=== PATIENT | female | born 1985 | race American Indian/Alaskan Native ===

== ENCOUNTER 2018-01-18 12:32 | Emergency (ER) | payer BC, OTHER ==
--- NOTE | 2018-01-18 13:44 | EDM.PDOC ---
ED HPI GENERAL MEDICAL PROBLEM - General Chief Complaint: Lower Extremity Injury/Pain Stated Complaint: RT KNEE, PAIN Time Seen by Provider: 01/18/18 12:49 Source of Information: Reports: Patient, RN, RN Notes Reviewed - History of Present Illness INITIAL COMMENTS - FREE TEXT/NARRATIVE: Pt to ER with c/o Left leg pain. She states she tripped over someone on a plane a few days ago. This is when she began feeling the pain. Pt states the pain is down the back of the leg above and below the knee. Pt states she can ambulate and bear weight on it. Pt rates pain a 4-5/10. Onset: Sudden Onset Date: 01/16/18 Duration: Getting Worse Location: Reports: Lower Extremity, Left Quality: Reports: Ache Severity: Moderate Improves with: Reports: None Worsens with: Reports: None Associated Symptoms: Reports: No Other Symptoms Right Knee Pain Score (Numeric/FACES): 8 - Related Data Allergies Allergy/AdvReac Type Severity Reaction Status Date / Time No Known Allergies Allergy Verified 01/18/18 12:36 Past Medical History HEENT History: Reports: Impaired Vision Cardiovascular History: Reports: None Respiratory History: Reports: None Gastrointestinal History: Reports: Cholelithiasis Genitourinary History: Reports: None 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: Musculoskeletal History: Reports: None Neurological History: Reports: None Psychiatric History: Reports: None Endocrine/Metabolic History: Reports: None Hematologic History: Reports: None Immunologic History: Reports: None Oncologic (Cancer) History: Reports: None Dermatologic History: Reports: None - Past Surgical History GI Surgical History: Reports: Cholecystectomy Social & Family History - Family History Family Medical History: Noncontributory - Tobacco Use Smoking Status *Q: Light Tobacco Smoker Years of Tobacco use: 10 Packs/Tins Daily: 0 - Caffeine Use Caffeine Use: Reports: Coffee Caffeine Use Comment: drinks coffee all day - Alcohol Use Days Per Week of Alcohol Use: 0 - Recreational Drug Use Recreational Drug Use: No Review of Systems - Review of Systems Review Of Systems: ROS reveals no pertinent complaints other than HPI. ED EXAM, GENERAL - Physical Exam Exam: See Below Exam Limited By: No Limitations General Appearance: Alert, WD/WN, No Apparent Distress Eye Exam: Bilateral Eye: Normal Inspection Ears: Normal External Exam, Normal Canal, Hearing Grossly Normal, Normal TMs Nose: Normal Inspection, Normal Mucosa, No Blood Throat/Mouth: Normal Inspection, Normal Lips, Normal Teeth, Normal Gums, Normal Oropharynx, Normal Voice, No Airway Compromise Head: Atraumatic, Normocephalic Neck: Normal Inspection, Supple, Non-Tender, Full Range of Motion Respiratory/Chest: No Respiratory Distress, Lungs Clear, Normal Breath Sounds, No Accessory Muscle Use, Chest Non-Tender Cardiovascular: Normal Peripheral Pulses, Regular Rate, Rhythm, No Edema, No Gallop, No JVD, No Murmur, No Rub GI/Abdominal: Normal Bowel Sounds, Soft, Non-Tender, No Organomegaly, No Distention, No Abnormal Bruit, No Mass (Female) Exam: Deferred Rectal (Female) Exam: Deferred Back Exam: Normal Inspection, Full Range of Motion, NT Extremities: Other (left knee swelling) Neurological: Alert, Oriented, CN II-XII Intact, Normal Cognition, Normal Gait, Normal Reflexes, No Motor/Sensory Deficits Psychiatric: Normal Affect Skin Exam: Warm, Dry, Intact, Normal Color, No Rash Lymphatic: No Adenopathy Course - Vital Signs Last Recorded V/S: Last Vital Signs Temp 98.1 F 01/18/18 12:37 Pulse 75 01/18/18 13:54 Resp 18 01/18/18 13:54 BP 121/66 01/18/18 13:54 Pulse Ox 96 01/18/18 13:54 - Radiology Interpretation Free Text/Narrative:: Right knee xray: No acute findings See rad report Departure - Departure Time of Disposition: 13:52 Disposition: Home, Self-Care 01 Condition: Fair Clinical Impression: Contusion of knee Sprain of knee and leg Qualifiers: Encounter type: initial encounter Laterality: right Qualified Code(s): S83.91XA - Sprain of unspecified site of right knee, initial encounter - Discharge Information Instructions: Knee Sprain, Adult, [id number], Knee Immobilizer, [id number] Referrals: PCP,None [Primary Care Provider] - Forms: ED Department Discharge Additional Instructions: Elevate and ice the area as tolerated May wear immobilizer for comfort and protection as tolerated Tylenol or ibuprofen as directed for pain Follow up with your primary care facility if no improvement
[2018-01-18 13:55] VITALS: BP 121/66
== END 2018-01-18 13:53 | disposition home or self-care (01) ==
LOC: DL.ED 12:32
DX: S83.91XA Sprain of unspecified site of right knee, initial encounter (principal); S80.01XA Contusion of right knee, initial encounter; F17.210 Nicotine dependence, cigarettes, uncomplicated; W18.41XA Slipping, tripping and stumbling without falling due to stepping on object, initial encounter
CPT/HCPCS: 73562-RT; 99284

== ENCOUNTER 2018-12-28 11:49 | Emergency (ER) | payer OTHER ==
[~2018-12-28 11:49] MED LIST: Sodium Chloride 0.9% 100 ML IV ONE; fentaNYL 100 MCG/2 ML SDV IVPUSH ONE
[2018-12-28] MEDS ORDERED: Tranexamic Acid 1,000 MG in Sodium Chloride 0.9% 100 ML IV ONE (11:50)
[2018-12-28] MEDS ORDERED: fentaNYL 100 MCG/2 ML SDV IV ONE (11:50)
[2018-12-28] MEDS ORDERED: ceFAZolin 2 GM in Sodium Chloride 0.9% 100 ML IV ONE (11:50)
[2018-12-28] MEDS ORDERED: Ondansetron 4 MG/2 ML SDV IV ONE (11:50)
[2018-12-29 12:05] LABS: ANION GAP 12.9; CHLORIDE,CL 106 mmol/L (101-111); SODIUM,NA 135 mmol/L (135-145)
--- NOTE | 2018-12-30 09:20 | CONS ---
SERVICE DATE: 12/29/2018 REASON FOR CONSULTATION: Hemorrhage due to miscarriage. HISTORY OF PRESENT ILLNESS: A 33-year-old female presented to the Emergency Department with spotting ongoing for the past 3 days, and then tonight around 11:00, started having severe cramping and heavier vaginal bleeding with passage of large clots as well as some dizziness. Uncertain if she has passed any tissue. Reports estimated due date as 07/26/2019. This was by [facility] ultrasound. The patient reports that she did feel a heartbeat at that time. The patient also had an ultrasound performed on 12/25/2018, because she has presented to the clinic with vaginal spotting and bleeding. At that time, there was an empty gestational sac. No pole. shampoo technician reported seeing what looked falsely like 2 separate sacs, and what was thought to be heartbeat was actually maternal blood flow, and overall findings were consistent with blighted ovum or most likely early miscarriage. The patient is a 4, para 2-1-0-3; blood type is O positive; and she is denying other acute concerns or complaints at this time. PAST MEDICAL HISTORY: Obesity and history of delivery. PAST SURGICAL HISTORY: Laparoscopic cholecystectomy in 2011. REVIEW OF SYSTEMS: Nausea without vomiting. No fever or chills. No chest pain or shortness of breath. No diarrhea or constipation. The patient denies other acute symptoms. PHYSICAL EXAMINATION: Vital Signs: Temperature is 98.0, pulse 74, respiratory rate of 18, O2 saturations 97% on room air, and blood pressure 128/65. General: The patient appears somewhat pale. HEENT: Grossly unremarkable. Heart: Regular without murmur. Lungs: Clear to auscultation bilaterally. Abdomen: Soft and nontender. Positive bowel sounds throughout. Genitourinary: Heavy vaginal bleeding present. On speculum exam, I removed approximately 200 mL and blood clots and flowing blood. Cervix was then prepped with Betadine, and I used a blunt curette as well as ring forceps to remove a small 0.5 x 1 cm fragment of placental tissue and additional clot. Extremities: No edema, erythema, or tenderness noted. Neurological: She is alert. IMAGING: Ultrasound performed in the Emergency Department after curetting of the uterus, and essentially, uterus is empty other than some blood. No remaining products of conception were seen. LABORATORY DATA: Blood type is O positive. Hemoglobin 14.5, platelets 255, and white blood cell count 9.88. Complete metabolic profile remarkable only for a CO2 of 20, calcium of 8.6, and glucose of 120. Otherwise, all within normal limits. ASSESSMENT: 1. Incomplete miscarriage. 2. Status post Emergency Department curetting of the uterus for removal of remaining products of conception, verified and completed by ultrasound. 3. Blood type O positive. 4. Now 4, para 2-1-1-3. PLAN: At this time, the patient is going to be given a dose of fentanyl for additional pain management, TXA to help control any additional hemorrhage, and 2 g of Ancef due to instrumentation of the uterus in less than ideal conditions and anticipate that I will just recheck her to verify that her bleeding has been controlled, and then she can be discharged home with close followup. She should see her obstetrical provider sometime this week for verification that things have been going well. I have spoken with the patient and her father to monitor for signs and symptoms of infection including fever, chills, uterine tenderness, foul-smelling drainage, discharge, also to monitor for more significant or heavy bleeding which may require further intervention. The patient will be also provided with a prescription for hydrocodone 5/325 one to two tablets every 6 hours as needed for more significant pain. Otherwise, advised to take over-the- counter Motrin 800 mg every 8 hours as needed for pain and advised that Motrin was typically more effective for uterine cramping than narcotics. The patient verbalizes understanding, and her questions were answered. [facility] /[id number]
== END 2018-12-29 03:30 | disposition home or self-care (01) ==
LOC: DL.ED 11:49
DX: O03.9 Complete or unspecified spontaneous abortion without complication (principal)
CPT/HCPCS: 36415; 76817; 80053; 85025; 86850; 86900; 86901; 86920; 86922; 96361; 96365; 96375; 96376; 99284-25; J0690; J2405; J3010; J7050

== ENCOUNTER 2019-12-05 08:04 | Inpatient (IN) | payer MEDICAID ==
[~2019-12-05 08:04] MED LIST changes: +Carboprost Tromethamine 250 MCG/1 ML Amp IM PRN; +Lactated Ringers 1,000 ML IV ONE; +Lidocaine 1% 30 ML SDV INJECT PRN; +Methylergonovine 0.2 MG/1 ML Amp IM PRN; +Misoprostol 400 MCG (4 X 100 MCG TAB) RECTAL PRN; +Ondansetron 4 MG/2 ML SDV IVPUSH PRN; +Sodium Chloride 0.9% 10 ML Syringe FLUSH PRN; -Sodium Chloride 0.9% 100 ML IV ONE; +Tranexamic Acid 1,000 MG in Sodium Chloride 0.9% 100 ML IV PRN; -fentaNYL 100 MCG/2 ML SDV IVPUSH ONE
[2019-12-05] MEDS ORDERED: Oxytocin/Normal Saline 30 UNIT/500 ML BAG IV SCH (09:00)
[2019-12-05] MEDS: Lactated Ringers 1,000 ML IV SCH ×3 (10:10→16:20)
[2019-12-05] MEDS ORDERED: fentaNYL 100 MCG/2 ML SDV IVPUSH PRN (12:30)
[2019-12-05] MEDS ORDERED: fentaNYL 100 MCG/2 ML SDV ONE (15:37)
[2019-12-05] MEDS ORDERED: EPINEPHrine 1 MG/1 ML Amp ONE (15:37)
[2019-12-05] MEDS ORDERED: Sodium Bicarbonate 4.2% 2.5 MEQ/5 ML SDV ONE (15:37)
--- NOTE | 2019-12-05 16:04 | PCM.SN ---
- Free Text/Narrative Note: Intrathecal. sitting position, sterile prep and drape. 1% lidocaine w bicarb for skiinwheal to L2-L3 interspace. Introducer, 24ga Pencan x 1. Pos CSF,neg heme, neg parasthesia. 0.1 ml pf 1:1000 epi, pf NS 0.4ml, 15 mcg pf sufenta, 35 mcg pf fentanyl, and 6 mg of 0.75% pf bupivacaine injected after CSF aspiration. Pt to L lateral position. Procedure time 1535 to 1605
[2019-12-05] MEDS ORDERED: Promethazine 25 MG/ML SDV ONE (17:51)
[2019-12-05] MEDS ORDERED: Simethicone 80 MG Tab.Chew PO PRN (17:57)
[2019-12-05] MEDS ORDERED: Zolpidem 5 MG Tab PO PRN (17:57)
[2019-12-05] MEDS ORDERED: Benzocaine/Menthol 20%-0.5% Spray 56 GM Canister TOP PRN (17:57)
--- NOTE | 2019-12-05 18:38 | PCM.LDHP ---
L&D History of Present Illness - General Date of Service: 12/05/19 (admit H&P) Admit Problem/Dx: Patient Status Order with Admit Dx/Problem 12/05/19 08:00 Patient Status [ADT] Routine Admission Diagnosis/Problem Admission Diagnosis/Problem Term 12/05/19 23:41 Laura is a delightful 33yo NA (2102) @ 39w1d who presents to L&D for induction due to excessive growth in the third trimester, and suspected LGA gestation, along with advanced cervical dilation. Source of Information: Patient, Family, Old Records, Provider, RN, RN Notes Reviewed History Limitations: Reports: No Limitations - History of Present Illness Introduction:: Laura is 33yo NA (2102) @ 39w1d in for induction for excessive growth in third trimester, suspected LGA, term , advanced cervical dilation, hx delivery, see episode and notes for details. baby active. no bleeding or LOF. 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: : 4 Para: 3 LMP (Approximate): Other OB/BYN History: Hx delivery Musculoskeletal History: Reports: None Neurological History: Reports: None Psychiatric History: Reports: None Endocrine/Metabolic History: Reports: None Hematologic History: Reports: None Immunologic History: Reports: None Oncologic (Cancer) History: Reports: None Dermatologic History: Reports: None - Past Surgical History GI Surgical History: Reports: Cholecystectomy Social & Family History - Family History Family Medical History: Noncontributory - Tobacco Use Smoking Status *Q: Former Smoker Used Tobacco, but Quit: Yes Month/Year Tobacco Last Used: 2018 Second Hand Smoke Exposure: No - Caffeine Use Caffeine Use: Reports: None, Coffee Caffeine Use Comment: drinks coffee all day - Recreational Drug Use Recreational Drug Use: No - Living Situation & Occupation Living situation: Reports: Single (lives with her 3 children. just moved back from .) H&P Review of Systems - Review of Systems: Review Of Systems: Comprehensive ROS is negative, except as noted in HPI. L&D Exam - Exam Exam: See Below - Vital Signs Vital Signs: Last Vital Signs Temp 98.4 F 12/05/19 10:00 Pulse 79 12/05/19 10:00 Resp 16 12/05/19 10:00 BP 111/69 12/05/19 10:00 Pulse Ox Weight: 573 lb 3.23 oz - OB Specific Contraction Duration (sec): 45-90 Contraction Frequency (min): irreg Contraction Intensity: Mild Movement: Active Heart Tones: Present Heart Rate (FHR) Variability: Moderate (6-25 bmp) Presentation: Vertex Estimated Weight: 9lb - Hatch Score Hatch Score Cervix Position: Posterior Hatch Score Consistency: Soft Hatch Score Effacement: 51-70% Hatch Score Dilation: 3-4 cm Hatch Score Infant's Station: -3 Hatch Score Total: 6 - Exam General: Alert, Oriented HEENT: Conjunctiva Clear, EOMI, Hearing Intact, Nares Patent, Pupils Equal, Pupils Reactive, PERRLA Neck: Supple, Trachea Midline Lungs: Clear to Auscultation, Normal Respiratory Effort Cardiovascular: Regular Rate, Regular Rhythm GI/Abdominal Exam: Normal Bowel Sounds, Soft, Non-Tender, No Organomegaly, No Abnormal Bruit, No Mass, Pelvis Stable Rectal Exam: Normal Exam Genitourinary: Normal external exam, Cervical dilitation, Cervical fluid (clear , copious), Enlarged uterus Back Exam: Normal Inspection, Full Range of Motion Extremities: Normal Inspection, Normal Range of Motion, Non-Tender, No Pedal Edema, Normal Capillary Refill Skin: Warm, Dry, Intact Neurological: Cranial Nerves Intact, Reflexes Equal Bilateral Psychiatric: Alert, Normal Affect, Normal Mood - Patient Data Lab Results Last 24 hrs: Laboratory Results - last 24 hr 12/05/19 Range/Units 09:55 WBC 6.3 (5.0-10.0) 10^3/uL RBC 3.90 L (4.2-5.4) 10^6/uL Hgb 11.3 L D (12.0-16.0) g/dL Hct 33.9 L (37.0-47.0) % MCV 86.9 D (80-100) fL MCH 29.0 (27.0-34.0) pg MCHC 33.3 (33.0-35.0) g/dL Plt Count 192 (150-450) 10^3/uL Result Diagrams: 12/05/19 09:55 Problem List Initiated/Reviewed/Updated: Yes Orders Last 24hrs: Active Orders 24 hr Category Date Time Status Patient Status [ADT] Routine ADT 12/05/19 08:00 Active Communication Order [RC] ASDIRECTED Care 12/04/19 22:05 Active Communication Order [RC] ASDIRECTED Care 12/04/19 22:18 Active Notify Provider Vital Signs OB [RC] ASDIRECTED Care 12/04/19 22:05 Active Notify Provider [RC] PRN Care 12/04/19 22:05 Active Notify Provider [RC] PRN Care 12/04/19 22:18 Active Notify Provider [RC] PRN Care 12/04/19 22:18 Active Notify Provider [RC] STAT Care 12/04/19 22:18 Active POC Labs [RC] ASDIRECTED Care 12/04/19 22:05 Active Peripheral IV Care [RC] 08,20 Care 12/04/19 22:23 Active Up ad Milagros [RC] ASDIRECTED Care 12/04/19 22:05 Active Vaginal Exam [RC] PRN Care 12/04/19 22:18 Active Vital Signs [RC] PER UNIT ROUTINE Care 12/04/19 22:05 Active Consult to Air Twist Operator [CONS] Routine Cons 12/05/19 18:10 Active Regular Diet [DIET] Diet 12/05/19 Dinner Active CBC W/O DIFF,HEMOGRAM [HEME] AM Lab 12/07/19 05:11 Ordered Acetaminophen [Tylenol] Med 12/04/19 22:05 Active 650 mg PO Q4H PRN Benzocaine/Menthol [Dermoplast Pain Relief [place]] Med 12/05/19 17:57 Active See Dose Instructions TOP Q4H PRN Carboprost Tromethamine [Hemabate DS] Med 12/04/19 22:05 Active 250 mcg IM ASDIRECTED PRN Docusate Sodium [Colace] Med 12/05/19 17:57 Ordered 100 mg PO BID PRN Ibuprofen [Motrin] Med 02/07/20 17:57 Active 800 mg PO Q8H PRN Lactated Ringers [Ringers, Lactated] 1,000 ml Med 12/04/19 22:15 Active IV ASDIRECTED Lidocaine 1% [Xylocaine-MPF 1%] Med 12/04/19 22:05 Active 30 ml INJECT ASDIRECTED PRN Methylergonovine [Methergine] Med 12/04/19 22:05 Active 0.2 mg IM ASDIRECTED PRN Ondansetron [Zofran] Med 12/04/19 22:05 Active 4 mg IVPUSH Q4H PRN Oxytocin/Normal Saline [Pitocin in NS 30 UNIT/500 ML] Med 12/05/19 09:00 Active 30 unit in 500 ml IV TITRATE Vit with Ca/FA/Iron [ Plus Iron] Med 12/06/19 09:00 Ordered 1 each PO DAILY Simethicone Med 12/05/19 17:57 Ordered 80 mg PO Q4H PRN Sodium Chloride 0.9% [Saline Flush] Med 12/04/19 22:05 Active 10 ml FLUSH ASDIRECTED PRN Tranexamic Acid [Cyklokapron] 1,000 mg Med 12/04/19 22:05 Active Sodium Chloride 0.9% [Normal Saline] 100 ml IV ONETIME Zolpidem [Ambien] Med 12/05/19 17:57 Active 5 mg PO BEDTIME PRN fentaNYL [Sublimaze] Med 12/05/19 12:30 Active 50 mcg IVPUSH Q1H PRN miSOPROStoL [Cytotec] Med 12/04/19 22:05 Active 800 mcg RECTAL ASDIRECTED PRN Assess Lochia [WOMSER] Per Unit Routine Oth 12/05/19 17:57 Ordered Assess Uterine Involution [WOMSER] Per Unit Routine Oth 12/05/19 17:57 Ordered Breast Pump [WOMSER] Per Unit Routine Oth 12/05/19 17:57 Ordered Ice Therapy [OM.PC] Per Unit Routine Oth 12/05/19 17:57 Ordered Perineal Care [OM.PC] Per Unit Routine Oth 12/05/19 17:57 Ordered Peripheral IV Insertion Adult [OM.PC] Urgent Oth 12/04/19 22:18 Ordered Saline Lock Insert [OM.PC] Routine Oth 12/04/19 22:05 Ordered Sitz Bath [OM.PC] Per Unit Routine Oth 12/05/19 17:57 Ordered Resuscitation Status Routine Resus Stat 12/04/19 22:05 Ordered Medication Orders Acetaminophen (Tylenol) 650 mg PO Q4H PRN PRN Reason: Pain (Mild 1-3) and fever Benzocaine/Menthol (Dermoplast Pain Relief [place]) 0 gm TOP Q4H PRN PRN Reason: Perineal comfort measures Carboprost Tromethamine (Hemabate Ds) 250 mcg IM ASDIRECTED PRN PRN Reason: HEMORRHAGE Docusate Sodium (Colace) 100 mg PO BID PRN PRN Reason: Constipation Fentanyl (Sublimaze) 50 mcg IVPUSH Q1H PRN PRN Reason: Pain (moderate 4-6) Lactated Ringer's (Ringers, Lactated) 1,000 mls @ 125 mls/hr IV ASDIRECTED CIRA Last Admin: 12/05/19 16:20 Dose: 125 mls/hr Infusion: 12/05/19 16:20 Dose: 125 mls/hr Admin: 12/05/19 15:50 Dose: 125 mls/hr Infusion: 12/05/19 15:50 Dose: 125 mls/hr Admin: 12/05/19 10:10 Dose: 125 mls/hr Oxytocin/Sodium Chloride (Pitocin In Ns 30 Unit/500 Ml) 30 unit in 500 mls @ 2 mls/hr IV TITRATE CIRA; Protocol Last Titration: 12/05/19 16:43 Dose: 10 munits/min, 10 mls/hr Titration: 12/05/19 16:18 Dose: 9 munits/min, 9 mls/hr Titration: 12/05/19 14:00 Dose: 8 munits/min, 8 mls/hr Titration: 12/05/19 11:55 Dose: 6 munits/min, 6 mls/hr Titration: 12/05/19 11:08 Dose: 4 munits/min, 4 mls/hr Admin: 12/05/19 10:31 Dose: 2 munits/min, 2 mls/hr Tranexamic Acid 1,000 mg/ (Sodium Chloride) 110 mls @ 660 mls/hr IV ONETIME PRN PRN Reason: Bleeding Ibuprofen (Motrin) 800 mg PO Q8H PRN PRN Reason: Mild Pain or Fever Lidocaine HCl (Xylocaine-Mpf 1%) 30 ml INJECT ASDIRECTED PRN PRN Reason: Perineal Repair Methylergonovine Maleate (Methergine) 0.2 mg IM ASDIRECTED PRN PRN Reason: Hemorrhage Misoprostol (Cytotec) 800 mcg RECTAL ASDIRECTED PRN PRN Reason: Hemorrhage Ondansetron HCl (Zofran) 4 mg IVPUSH Q4H PRN PRN Reason: Nausea/Vomiting Last Admin: 12/05/19 15:40 Dose: 4 mg Prenat Multivit/[place]/Iron/Folic Ac ( Plus Iron) 1 each PO DAILY CIRA Simethicone (Simethicone) 80 mg PO Q4H PRN PRN Reason: Gas Sodium Chloride (Saline Flush) 10 ml FLUSH ASDIRECTED PRN PRN Reason: Keep Vein Open Zolpidem Tartrate (Ambien) 5 mg PO BEDTIME PRN PRN Reason: Insomnia Assessment/Plan Comment:: Assessment: 33yo NA (261) @ 39w1d candidate for induction excessive growth during third trimester--likely LGA Hs PTD @ 34 weeks GBS negative Rubella immune Blood type O+ advanced cervical dilation -- anemia/mild NST reactive/reassuring Plan: admit as scheduled/planned for induction AROM carried out with return of copious amounts of clear fluid pitocin infusion per protocol continue to monitor closely. all questions answered. Laura happy with care and plan. b
--- NOTE | 2019-12-05 18:44 | PCM.DEL ---
L & D Note - General Info Date of Service: 12/05/19 (time of delivery 1735) Mother's Due Date: 12/11/19 (39w1d) - Delivery Note Labor: Induced by ARM, Induced by Oxytocin Delivery Outcome: Livebirth Delivery Method: Spontaneous Vaginal Delivery-Single Infant Delivery Mode: Spontaneous Nuchal Cord: None Prep: Povidone-Iodine (Betadine Anesthesia Type: Intrathecal Amniotic Fluid Description: Clear Episiotomy Type: None Laceration: None Placenta: Intact, Expressed Cord: 3 Vessels Estimated Blood Loss: 200 : Bulb Syringe Provider: Maddy Erickson Score 1 min: 8 Score 5 min: 9 Delivery Comments (Free Text/Narrative):: Laura presented as noted for induction. AROM carried out with return of large amount of clear fluid. Pitocin infusion started. She progressed on into labor. Used fentanyl, then subsequently had intrathecal placed witgh excellent results. Labored down to complete dilation, and was with contractions. viable female delivered in Sushil position with feet up on stirrups. some assistance given to delivering the shoulders. viable female infant with strong cry at . no nuchal cord. suctioned and dried with strong cry right away. APGARs 8 & 9 BW 9lb 8oz cord double clamped and cut by family member cord blood specimen obtained for lab. placenta delivered intact with trailing membranes, inspected and found to be complete. 3VC noted. fundus firm, EBL<200cc, pitocin infusiong per protocol. intact perineum mom and baby tolerated well and will follow routine nursery and orders and cares. hmb Induction Criteria - Hatch Score Hatch Score Dilation: 3-4 cm Hatch Score Effacement: 60-70% Hatch Score Infant's Station: -3 Hatch Score Consistency: Soft Hatch Score Cervix Position: Posterior Hatch Score Total: 6 Hatch Score Presenting Part: Reports: Cephalic - Induction Gestational Age >/= 39 wks: Yes Estimated Pelvis: Reports: Adequate Reassuring Monitoring Strip: Yes Absence of Tachy Systole: Yes - Augmentation Estimated Pelvis: Reports: Adequate Weight Estimated:: Reports: LGA Estimated Weight if LGA: 9 lb Reassuring Monitoring Strip: Yes Absence of Tachy Systole: Yes - General Info Date of Service: 12/05/19 - Review of Systems General: Reports: No Symptoms HEENT: Reports: No Symptoms Pulmonary: Reports: No Symptoms Cardiovascular: Reports: No Symptoms Gastrointestinal: Reports: No Symptoms Genitourinary: Reports: No Symptoms Musculoskeletal: Reports: No Symptoms Skin: Reports: No Symptoms Neurological: Reports: No Symptoms Psychiatric: Reports: No Symptoms - Patient Data Vitals - Most Recent: Last Vital Signs Temp 98.4 F 12/05/19 10:00 Pulse 79 12/05/19 10:00 Resp 16 12/05/19 10:00 BP 111/69 12/05/19 10:00 Pulse Ox Weight - Most Recent: 573 lb 3.23 oz I&O - Last 24 Hours: Intake & Output 12/05/19 12/05/19 12/05/19 06:59 14:59 22:59 Intake Total 1999 Balance 1999 Lab Results Last 24 Hours: Laboratory Results - last 24 hr 12/05/19 Range/Units 09:55 WBC 6.3 (5.0-10.0) 10^3/uL RBC 3.90 L (4.2-5.4) 10^6/uL Hgb 11.3 L D (12.0-16.0) g/dL Hct 33.9 L (37.0-47.0) % MCV 86.9 D (80-100) fL MCH 29.0 (27.0-34.0) pg MCHC 33.3 (33.0-35.0) g/dL Plt Count 192 (150-450) 10^3/uL Med Orders - Current: Current Medications Acetaminophen (Tylenol) 650 mg PO Q4H PRN PRN Reason: Pain (Mild 1-3) and fever Benzocaine/Menthol (Dermoplast Pain Relief [place]) 0 gm TOP Q4H PRN PRN Reason: Perineal comfort measures Carboprost Tromethamine (Hemabate Ds) 250 mcg IM ASDIRECTED PRN PRN Reason: HEMORRHAGE Docusate Sodium (Colace) 100 mg PO BID PRN PRN Reason: Constipation Fentanyl (Sublimaze) 50 mcg IVPUSH Q1H PRN PRN Reason: Pain (moderate 4-6) Lactated Ringer's (Ringers, Lactated) 1,000 mls @ 125 mls/hr IV ASDIRECTED CIRA Last Admin: 12/05/19 16:20 Dose: 125 mls/hr Oxytocin/Sodium Chloride (Pitocin In Ns 30 Unit/500 Ml) 30 unit in 500 mls @ 2 mls/hr IV TITRATE CIRA; Protocol Last Titration: 12/05/19 16:43 Dose: 10 munits/min, 10 mls/hr Tranexamic Acid 1,000 mg/ (Sodium Chloride) 110 mls @ 660 mls/hr IV ONETIME PRN PRN Reason: Bleeding Ibuprofen (Motrin) 800 mg PO Q8H PRN PRN Reason: Mild Pain or Fever Lidocaine HCl (Xylocaine-Mpf 1%) 30 ml INJECT ASDIRECTED PRN PRN Reason: Perineal Repair Methylergonovine Maleate (Methergine) 0.2 mg IM ASDIRECTED PRN PRN Reason: Hemorrhage Misoprostol (Cytotec) 800 mcg RECTAL ASDIRECTED PRN PRN Reason: Hemorrhage Ondansetron HCl (Zofran) 4 mg IVPUSH Q4H PRN PRN Reason: Nausea/Vomiting Last Admin: 12/05/19 15:40 Dose: 4 mg Prenat Multivit/Tobacco Prevention Health Educator/Iron/Folic Ac ( Plus Iron) 1 each PO DAILY CIRA Simethicone (Simethicone) 80 mg PO Q4H PRN PRN Reason: Gas Sodium Chloride (Saline Flush) 10 ml FLUSH ASDIRECTED PRN PRN Reason: Keep Vein Open Zolpidem Tartrate (Ambien) 5 mg PO BEDTIME PRN PRN Reason: Insomnia Discontinued Medications Epinephrine HCl (Adrenalin) Confirm Administered Dose 1 mg .ROUTE .STK-MED ONE Stop: 12/05/19 15:38 Fentanyl (Sublimaze) Confirm Administered Dose 100 mcg .ROUTE .STK-MED ONE Stop: 12/05/19 15:38 Lactated Ringer's (Ringers, Lactated) 1,000 mls @ 500 mls/hr IV BOLUS ONE Stop: 12/05/19 00:04 Promethazine HCl (Phenergan) Confirm Administered Dose 25 mg .ROUTE .STK-MED ONE Stop: 12/05/19 17:52 Sodium Bicarbonate (Sodium Bicarbonate 4.2%) Confirm Administered Dose 2.5 meq .ROUTE .STK-MED ONE Stop: 12/05/19 15:38 Sufentanil Citrate (Sufenta) Confirm Administered Dose 50 mcg .ROUTE .STK-MED ONE Stop: 12/05/19 15:38 - Exam General: Alert, Oriented HEENT: Pupils Equal, Pupils Reactive, EOMI, Mucous Membr. Moist/[place] Neck: Supple Lungs: Clear to Auscultation, Normal Respiratory Effort Cardiovascular: Regular Rate, Regular Rhythm GI/Abdominal Exam: Normal Bowel Sounds, Soft, Non-Tender, No Organomegaly, No Abnormal Bruit, Pelvis Stable (Female) Exam: Normal External Exam, Normal Speculum Exam Back Exam: Normal Inspection, Full Range of Motion Extremities: Normal Inspection, Normal Range of Motion, Non-Tender, No Pedal Edema, Normal Capillary Refill Skin: Warm, Dry, Intact Wound/Incisions: Healing Well Neurological: No New Focal Deficit Psy/Mental Status: Alert, Normal Affect, Normal Mood - Problem List & Annotations (1) Vaginal delivery SNOMED Code(s): 735751743 Code(s): O80 - ENCOUNTER FOR FULL-TERM UNCOMPLICATED DELIVERY Status: Acute Current Visit: Yes (2) LGA (large for gestational age) fetus affecting mother, delivered SNOMED Code(s): 59258168, 345877492 Code(s): O36.60X0 - MATERNAL CARE FOR EXCESS GROWTH, UNSP TRIMESTER, UNSP Status: Acute Current Visit: Yes (3) Mother currently breast-feeding SNOMED Code(s): 889257920 Code(s): Z39.1 - ENCOUNTER FOR CARE AND EXAMINATION OF LACTATING MOTHER Status: Acute Current Visit: Yes - Problem List Review Problem List Initiated/Reviewed/Updated: Yes - My Orders Last 24 Hours: My Active Orders 12/04/19 22:05 Communication Order [RC] ASDIRECTED Notify Provider Vital Signs OB [RC] ASDIRECTED Notify Provider [RC] PRN POC Labs [RC] ASDIRECTED Up ad Milagros [RC] ASDIRECTED Vital Signs [RC] PER UNIT ROUTINE Acetaminophen [Tylenol] 650 mg PO Q4H PRN Carboprost Tromethamine [Hemabate DS] 250 mcg IM ASDIRECTED PRN Lidocaine 1% [Xylocaine-MPF 1%] 30 ml INJECT ASDIRECTED PRN Methylergonovine [Methergine] 0.2 mg IM ASDIRECTED PRN Ondansetron [Zofran] 4 mg IVPUSH Q4H PRN Sodium Chloride 0.9% [Saline Flush] 10 ml FLUSH ASDIRECTED PRN Tranexamic Acid [Cyklokapron] 1,000 mg Sodium Chloride 0.9% [Normal Saline] 100 ml IV ONETIME miSOPROStoL [Cytotec] 800 mcg RECTAL ASDIRECTED PRN Saline Lock Insert [OM.PC] Routine Resuscitation Status Routine 12/04/19 22:15 Lactated Ringers [Ringers, Lactated] 1,000 ml IV ASDIRECTED 12/04/19 22:18 Communication Order [RC] ASDIRECTED Notify Provider [RC] PRN Notify Provider [RC] PRN Notify Provider [RC] STAT Vaginal Exam [RC] PRN Peripheral IV Insertion Adult [OM.PC] Urgent 12/04/19 22:23 Peripheral IV Care [RC] 12/05/19 08:00 Patient Status [ADT] Routine 12/05/19 09:00 Oxytocin/Normal Saline [Pitocin in NS 30 UNIT/500 ML] 30 unit in 500 ml IV TITRATE 12/05/19 12:30 fentaNYL [Sublimaze] 50 mcg IVPUSH Q1H PRN 12/05/19 17:57 Benzocaine/Menthol [Dermoplast Pain Relief [place]] See Dose Instructions TOP Q4H PRN Docusate Sodium [Colace] 100 mg PO BID PRN Ibuprofen [Motrin] 800 mg PO Q8H PRN Simethicone 80 mg PO Q4H PRN Zolpidem [Ambien] 5 mg PO BEDTIME PRN Assess Lochia [WOMSER] Per Unit Routine Assess Uterine Involution [WOMSER] Per Unit Routine Breast Pump [WOMSER] Per Unit Routine Ice Therapy [OM.PC] Per Unit Routine Perineal Care [OM.PC] Per Unit Routine Sitz Bath [OM.PC] Per Unit Routine 12/05/19 18:10 Consult to Cold Food Packer [CONS] Routine 12/05/19 Dinner Regular Diet [DIET] 12/06/19 09:00 Vit with Ca/FA/Iron [ Plus Iron] 1 each PO DAILY 12/07/19 05:11 CBC W/O DIFF,HEMOGRAM [HEME] AM - Assessment Assessment:: 33yo NA G4 now P4 (9894) 30w1d delivered @ 1735 on 12-05-2019 Viable female , LGA @ 4305g/ 9lb 8oz APGARs 8 & 9 mom is O+, GBS neg, rubella immune . induced vaginal delivery, AROM and pitocin, over intact perineum - Plan Plan:: Plan: routine nursery and cares for mom and baby. likely home PPD #2, hgb to be drawn. , rooming in as much as possible. all questions answered. Dr. Larry to follow over weekend. Pt aware. hmb
[2019-12-06] MEDS: Ibuprofen 800 MG Tab PO PRN ×3 (01:28→17:25)
[2019-12-06] MEDS: Docusate Sodium 100 MG Cap PO PRN ×2 (08:56→20:35)
[2019-12-06] MEDS: Prenatal Multivitamin with Calcium/Folic Acid/Iron Tab PO SCH (08:56)
--- NOTE | 2019-12-06 10:41 | PCM.PNPP ---
- General Info Date of Service: 12/06/19 Subjective Update: PPD#1 status post at 39w1d. Patient reports she is feeling well. Denies any pain. Vaginal bleeding has decreased since last night--has had small increase in bleeding only when nursing. No headaches, dizziness, lightheadedness, fever or chills. Tolerating a general diet. Urinating and passing gas. Has not yet had a bowel movement. Ambulating without difficulty. is going well. Minimal pain with latch. Functional Status: Reports: Pain Controlled, Tolerating Diet, Ambulating, Urinating - Review of Systems General: Reports: No Symptoms HEENT: Reports: No Symptoms Pulmonary: Reports: No Symptoms Cardiovascular: Reports: No Symptoms Gastrointestinal: Reports: No Symptoms Genitourinary: Reports: No Symptoms Musculoskeletal: Reports: No Symptoms Skin: Reports: No Symptoms Neurological: Reports: No Symptoms - General Info Date of Service: 12/06/19 - Patient Data Vital Signs - Most Recent: Last Vital Signs Temp 36.6 C 12/06/19 08:00 Pulse 69 12/06/19 08:00 Resp 16 12/06/19 08:00 BP 117/62 12/06/19 08:00 Pulse Ox 97 12/06/19 08:00 Weight - Most Recent: 260 kg I&O - Last 24 Hours: Intake & Output 12/05/19 12/06/19 12/06/19 22:59 06:59 14:59 Intake Total 2000 Output Total 75 950 Balance 1925 -950 Med Orders - Current: Current Medications Acetaminophen (Tylenol) 650 mg PO Q4H PRN PRN Reason: Pain (Mild 1-3) and fever Benzocaine/Menthol (Dermoplast Pain Relief [place]) 0 gm TOP Q4H PRN PRN Reason: Perineal comfort measures Carboprost Tromethamine (Hemabate Ds) 250 mcg IM ASDIRECTED PRN PRN Reason: HEMORRHAGE Docusate Sodium (Colace) 100 mg PO BID PRN PRN Reason: Constipation Last Admin: 12/06/19 08:56 Dose: 100 mg Fentanyl (Sublimaze) 50 mcg IVPUSH Q1H PRN PRN Reason: Pain (moderate 4-6) Lactated Ringer's (Ringers, Lactated) 1,000 mls @ 125 mls/hr IV ASDIRECTED CIRA Last Admin: 12/05/19 16:20 Dose: 125 mls/hr Oxytocin/Sodium Chloride (Pitocin In Ns 30 Unit/500 Ml) 30 unit in 500 mls @ 2 mls/hr IV TITRATE CIRA; Protocol Last Titration: 12/05/19 20:15 Dose: Infused Tranexamic Acid 1,000 mg/ (Sodium Chloride) 110 mls @ 660 mls/hr IV ONETIME PRN PRN Reason: Bleeding Ibuprofen (Motrin) 800 mg PO Q8H PRN PRN Reason: Mild Pain or Fever Last Admin: 12/06/19 08:56 Dose: 800 mg Lidocaine HCl (Xylocaine-Mpf 1%) 30 ml INJECT ASDIRECTED PRN PRN Reason: Perineal Repair Methylergonovine Maleate (Methergine) 0.2 mg IM ASDIRECTED PRN PRN Reason: Hemorrhage Misoprostol (Cytotec) 800 mcg RECTAL ASDIRECTED PRN PRN Reason: Hemorrhage Ondansetron HCl (Zofran) 4 mg IVPUSH Q4H PRN PRN Reason: Nausea/Vomiting Last Admin: 12/05/19 15:40 Dose: 4 mg Prenat Multivit/Vessel Slagman/Iron/Folic Ac ( Plus Iron) 1 each PO DAILY CIRA Last Admin: 12/06/19 08:56 Dose: 1 each Simethicone (Simethicone) 80 mg PO Q4H PRN PRN Reason: Gas Sodium Chloride (Saline Flush) 10 ml FLUSH ASDIRECTED PRN PRN Reason: Keep Vein Open Zolpidem Tartrate (Ambien) 5 mg PO BEDTIME PRN PRN Reason: Insomnia Discontinued Medications Epinephrine HCl (Adrenalin) Confirm Administered Dose 1 mg .ROUTE .STK-MED ONE Stop: 12/05/19 15:38 Last Admin: 12/05/19 20:26 Dose: Not Given Fentanyl (Sublimaze) Confirm Administered Dose 100 mcg .ROUTE .STK-MED ONE Stop: 12/05/19 15:38 Last Admin: 12/05/19 20:26 Dose: Not Given Lactated Ringer's (Ringers, Lactated) 1,000 mls @ 500 mls/hr IV BOLUS ONE Stop: 12/05/19 00:04 Last Admin: 12/05/19 20:30 Dose: Not Given Promethazine HCl (Phenergan) Confirm Administered Dose 25 mg .ROUTE .STK-MED ONE Stop: 12/05/19 17:52 Last Admin: 12/05/19 18:00 Dose: 25 mg Sodium Bicarbonate (Sodium Bicarbonate 4.2%) Confirm Administered Dose 2.5 meq .ROUTE .STK-MED ONE Stop: 12/05/19 15:38 Last Admin: 12/05/19 20:26 Dose: Not Given Sufentanil Citrate (Sufenta) Confirm Administered Dose 50 mcg .ROUTE .STK-MED ONE Stop: 12/05/19 15:38 Last Admin: 12/05/19 20:27 Dose: Not Given - Interaction Infant Disposition, : in Room with Family Infant Interaction: Holding Infant Feeding: Breastfed ; Nursed Well, Continues to Breastfeed Support Person: Mother, Sister - Recovery Exam Fundal Tone: Firm Fundal Level: 2 Fingerbreadths Above Umbilicus Fundal Placement: Midline Lochia Amount: Small Lochia Color: Rubra/Red Perineum Description: Intact, Minimal Bruising/Swelling Episiotomy/Laceration: None Bladder Status: Voiding - Exam General: Alert, Oriented Lungs: Clear to Auscultation, Normal Respiratory Effort Cardiovascular: Regular Rate, Regular Rhythm, No Murmurs GI/Abdominal Exam: Soft, Non-Tender Extremities: Pedal Edema (1+ bilaterally) Skin: Warm, Dry, Intact - Problem List & Annotations (1) LGA (large for gestational age) fetus affecting mother, delivered SNOMED Code(s): 77052660, 550229909 Code(s): O36.60X0 - MATERNAL CARE FOR EXCESS GROWTH, UNSP TRIMESTER, UNSP Status: Acute Current Visit: Yes (2) Mother currently breast-feeding SNOMED Code(s): 842651714 Code(s): Z39.1 - ENCOUNTER FOR CARE AND EXAMINATION OF LACTATING MOTHER Status: Acute Current Visit: Yes (3) Vaginal delivery SNOMED Code(s): 908191248 Code(s): O80 - ENCOUNTER FOR FULL-TERM UNCOMPLICATED DELIVERY Status: Acute Current Visit: Yes - Problem List Review Problem List Initiated/Reviewed/Updated: Yes - Assessment Assessment:: 33yo NA G4 now P4 (3600) 37w1d delivered @ 1745 on 12-05-2019 Viable female infant, LGA @ 4305g/ 9lb 8oz - Plan Plan:: 1. Continue routine cares 2. 3. Anticipate discharge 12/07/2019 Tiki Young MD
[2019-12-06] MEDS: Acetaminophen 325 MG Tab PO PRN ×2 (15:30→20:35)
[2019-12-07] MEDS: Ibuprofen 800 MG Tab PO PRN ×2 (01:51→10:06)
[2019-12-07 08:11] VITALS: BP 100/45; PULSE 69
[2019-12-07] MEDS: Docusate Sodium 100 MG Cap PO PRN (10:06)
[2019-12-07] MEDS: Prenatal Multivitamin with Calcium/Folic Acid/Iron Tab PO SCH (10:06)
--- NOTE | 2019-12-07 11:42 | PCM.DCSUM1 ---
Discharge Summary - Hospital Course Free Text/Narrative:: 33-year-old PPD#2 status post at 39w1d. Diagnosis: Stroke: No - Discharge Data Discharge Date: 12/07/19 Discharge Disposition: Home, Self-Care 01 Condition: Good - Referral to Home Health Primary Care Physician: Maddy Erickson MD - Discharge Diagnosis/Problem(s) (1) LGA (large for gestational age) fetus affecting mother, delivered SNOMED Code(s): 02542785, 859957245 ICD Code: O36.60X0 - MATERNAL CARE FOR EXCESS GROWTH, UNSP TRIMESTER, UNSP Status: Acute (2) Mother currently breast-feeding SNOMED Code(s): 045579471 ICD Code: Z39.1 - ENCOUNTER FOR CARE AND EXAMINATION OF LACTATING MOTHER Status: Acute (3) Vaginal delivery SNOMED Code(s): 841679559 ICD Code: O80 - ENCOUNTER FOR FULL-TERM UNCOMPLICATED DELIVERY Status: Acute - Patient Summary/Data Operative Procedure(s) Performed: None Complications: None Consults: Consultations 12/05/19 18:10 Consult to Log Truck Driver [CONS] Routine Labs Pending at D/C: None Recommended Follow-up Testing/Procedures: None Planned Operative Procedure(s) after DC: None Hospital Course: Please see subjective section - Patient Instructions Diet: Usual Diet as Tolerated Activity: As Tolerated, No Lifting Over 20 Pounds Driving: May Drive Today Showering/Bathing: May Shower Notify Provider of: Fever, Increased Pain, Swelling and Redness, Drainage - Discharge Plan *PRESCRIPTION DRUG MONITORING PROGRAM REVIEWED*: Not Applicable *COPY OF PRESCRIPTION DRUG MONITORING REPORT IN PATIENT MERLENE: Not Applicable Home Medications: Home Meds Acetaminophen [Tylenol] 650 mg PO Q4H PRN tablet 12/07/19 [Rx] Docusate Sodium [Colace] 100 mg PO BID PRN cap 12/07/19 [Rx] Ibuprofen [Motrin] 800 mg PO Q8H PRN tablet 12/07/19 [Rx] Vit with Ca/FA/Iron [ Plus Iron] 1 each PO DAILY tablet [Rx] Patient Handouts: and Self-Care, Care After Vaginal Delivery Referrals: Maddy Erickson MD [Primary Care Provider] - (6-8 weeks for visit) - Discharge Summary/Plan Comment DC Time >30 min.: No Discharge Summary/Plan Comment: Discharge home today with follow-up with Dr. Erickson in 6-8 weeks for visit. Discussed signs and symptoms of mastitis. Discussed reasons that should prompt patient to come into the clinic or ED for evaluation. Patient voices her understanding, and all questions were answered. - General Info Date of Service: 12/07/19 Subjective Update: Patient is doing well. Bleeding has decreased but patient will still have "small gushes" of blood when she is nursing. Patine denies any pain other than mild aches and pains. No fevers or chills. No dizziness or lightheadedness. Tolerating a general diet. Voiding and stooling independently. is going well. No concerns per patient or per nursing staff Functional Status: Reports: Pain Controlled, Tolerating Diet, Ambulating, Urinating - Review of Systems General: Reports: No Symptoms HEENT: Reports: No Symptoms Pulmonary: Reports: No Symptoms Cardiovascular: Reports: No Symptoms Gastrointestinal: Reports: No Symptoms Musculoskeletal: Reports: No Symptoms Skin: Reports: No Symptoms Neurological: Reports: No Symptoms - Patient Data Vitals - Most Recent: Last Vital Signs Temp 36.6 C 12/07/19 08:00 Pulse 69 12/07/19 08:00 Resp 20 12/07/19 08:00 BP 100/45 L 12/07/19 08:00 Pulse Ox 99 12/07/19 08:00 Weight - Most Recent: 260 kg Lab Results - Last 24 hrs: Laboratory Results - last 24 hr 12/07/19 Range/Units 06:00 WBC 7.2 (5.0-10.0) 10^3/uL RBC 3.78 L (4.2-5.4) 10^6/uL Hgb 10.9 L (12.0-16.0) g/dL Hct 33.2 L (37.0-47.0) % MCV 87.8 (80-100) fL MCH 28.8 (27.0-34.0) pg MCHC 32.8 L (33.0-35.0) g/dL Plt Count 178 (150-450) 10^3/uL Med Orders - Current: Current Medications Acetaminophen (Tylenol) 650 mg PO Q4H PRN PRN Reason: Pain (Mild 1-3) and fever Last Admin: 12/06/19 20:35 Dose: 650 mg Benzocaine/Menthol (Dermoplast Pain Relief [place]) 0 gm TOP Q4H PRN PRN Reason: Perineal comfort measures Carboprost Tromethamine (Hemabate Ds) 250 mcg IM ASDIRECTED PRN PRN Reason: HEMORRHAGE Docusate Sodium (Colace) 100 mg PO BID PRN PRN Reason: Constipation Last Admin: 12/07/19 10:06 Dose: 100 mg Fentanyl (Sublimaze) 50 mcg IVPUSH Q1H PRN PRN Reason: Pain (moderate 4-6) Lactated Ringer's (Ringers, Lactated) 1,000 mls @ 125 mls/hr IV ASDIRECTED CIRA Last Admin: 12/05/19 16:20 Dose: 125 mls/hr Oxytocin/Sodium Chloride (Pitocin In Ns 30 Unit/500 Ml) 30 unit in 500 mls @ 2 mls/hr IV TITRATE CIRA; Protocol Last Titration: 12/05/19 20:15 Dose: Infused Tranexamic Acid 1,000 mg/ (Sodium Chloride) 110 mls @ 660 mls/hr IV ONETIME PRN PRN Reason: Bleeding Ibuprofen (Motrin) 800 mg PO Q8H PRN PRN Reason: Mild Pain or Fever Last Admin: 12/07/19 10:06 Dose: 800 mg Lidocaine HCl (Xylocaine-Mpf 1%) 30 ml INJECT ASDIRECTED PRN PRN Reason: Perineal Repair Methylergonovine Maleate (Methergine) 0.2 mg IM ASDIRECTED PRN PRN Reason: Hemorrhage Misoprostol (Cytotec) 800 mcg RECTAL ASDIRECTED PRN PRN Reason: Hemorrhage Ondansetron HCl (Zofran) 4 mg IVPUSH Q4H PRN PRN Reason: Nausea/Vomiting Last Admin: 12/05/19 15:40 Dose: 4 mg Prenat Multivit/Lead Process Engineer/Iron/Folic Ac ( Plus Iron) 1 each PO DAILY [facility] Last Admin: 12/07/19 10:06 Dose: 1 each Simethicone (Simethicone) 80 mg PO Q4H PRN PRN Reason: Gas Sodium Chloride (Saline Flush) 10 ml FLUSH ASDIRECTED PRN PRN Reason: Keep Vein Open Zolpidem Tartrate (Ambien) 5 mg PO BEDTIME PRN PRN Reason: Insomnia Discontinued Medications Epinephrine HCl (Adrenalin) Confirm Administered Dose 1 mg .ROUTE .STK-MED ONE Stop: 12/05/19 15:38 Last Admin: 12/05/19 20:26 Dose: Not Given Fentanyl (Sublimaze) Confirm Administered Dose 100 mcg .ROUTE .STK-MED ONE Stop: 12/05/19 15:38 Last Admin: 12/05/19 20:26 Dose: Not Given Lactated Ringer's (Ringers, Lactated) 1,000 mls @ 500 mls/hr IV BOLUS ONE Stop: 12/05/19 00:04 Last Admin: 12/05/19 20:30 Dose: Not Given Promethazine HCl (Phenergan) Confirm Administered Dose 25 mg .ROUTE .STK-MED ONE Stop: 12/05/19 17:52 Last Admin: 12/05/19 18:00 Dose: 25 mg Sodium Bicarbonate (Sodium Bicarbonate 4.2%) Confirm Administered Dose 2.5 meq .ROUTE .STK-MED ONE Stop: 12/05/19 15:38 Last Admin: 12/05/19 20:26 Dose: Not Given Sufentanil Citrate (Sufenta) Confirm Administered Dose 50 mcg .ROUTE .STK-MED ONE Stop: 12/05/19 15:38 Last Admin: 12/05/19 20:27 Dose: Not Given - Exam General: Reports: Alert, Oriented Lungs: Reports: Clear to Auscultation, Normal Respiratory Effort Cardiovascular: Reports: Regular Rate, Regular Rhythm, No Murmurs Back Exam: Reports: Normal Inspection Extremities: Pedal Edema (Trace bilaterally) Skin: Reports: Warm, Dry, Intact
== END 2019-12-07 13:52 | disposition home or self-care (01) | DRG 807 ==
LOC: DL.OBCHECK 08:04 → DL.OB 08:33 → OBSVTOIN 17:35 → DL.OB 17:35
PROVIDERS: ADMIT Family Medicine; ATTEND Family Medicine
PROC: 10907ZC Drainage of Amniotic Fluid, Therapeutic from Products of Conception, Via Natural or Artificial Opening (ICD-10-PCS; principal; 2019-12-05)
PROC: 10E0XZZ Delivery of Products of Conception, External Approach (ICD-10-PCS; 2019-12-05)
PROC: 3E033VJ Introduction of Other Hormone into Peripheral Vein, Percutaneous Approach (ICD-10-PCS; 2019-12-05)
PROC: 3E0R3BZ Introduction of Anesthetic Agent into Spinal Canal, Percutaneous Approach (ICD-10-PCS; 2019-12-05)
DX: O36.63X0 Maternal care for excessive fetal growth, third trimester, not applicable or unspecified (principal); O99.214 Obesity complicating childbirth; E66.9 Obesity, unspecified; Z37.0 Single live birth; Z3A.39 39 weeks gestation of pregnancy; Z87.891 Personal history of nicotine dependence; Z90.49 Acquired absence of other specified parts of digestive tract; Z79.899 Other long term (current) drug therapy
CPT/HCPCS: 36415; 51701; 59409; 85027; A9270-GY; J2405; J2550; J2590; J7120